=== PATIENT | male | born 1970 | race Caucasian/White ===

== ENCOUNTER → 2018-03-19 | Outpatient (CLI) | payer BC ==
--- NOTE | 2018-03-19 17:22 | RAD ---
History: Pain in right thumb and wrist. Comparison: None. Findings: PA, lateral, and oblique views of the right wrist. No acute fracture or dislocation is identified. No significant degeneration is seen. No focal soft tissue swelling is identified. PA view of the right hand. PA, lateral, and oblique views of the 1st digit of the right hand (thumb). No acute fracture or dislocation is identified involving the thumb. Mild 1st MCP degeneration is seen. Impression: 1. No acute osseous abnormality identified. 2. Mild 1st MCP degeneration. Electronically signed by: Marco A Gonzalez MD (03/19/2018 5:19 PM) [facility]
== END | disposition home or self-care (01) ==
LOC: PMG 09:20
PROVIDERS: ATTEND Physician Assistant
DX: M18.9 Osteoarthritis of first carpometacarpal joint, unspecified (principal)
CPT/HCPCS: 73110; 73140

== ENCOUNTER → 2020-10-23 | Outpatient (CLI) | payer BC ==
[2020-10-23 10:07] LABS: DIRECT BILIRUBIN 0.1 mg/dL (0.0-0.2); TOTAL BILIRUBIN 0.6 mg/dL (0.2-1.0); TOTAL PROTEIN 7.8 g/dL (6.4-8.2)
[2020-10-24 05:39] LABS: HEMOGLOBIN A1C 6.4 % (4.8-5.6)
== END ==
LOC: LAB 09:11
PROVIDERS: ATTEND Internal Medicine Gastroenterology
DX: E88.81 Metabolic syndrome and other insulin resistance (principal); R79.89 Other specified abnormal findings of blood chemistry
CPT/HCPCS: 36415; 80076; 82728; 83036; 86803; 87340

== ENCOUNTER → 2020-11-10 | Outpatient (CLI) | payer BC ==
--- NOTE | 2020-11-10 08:34 | RAD ---
EXAMINATION: US ABDOMEN LIMITED INDICATION: 50 years, Male, elevated liver function test. COMPARISON: None TECHNIQUE: Grayscale, color Doppler and limited spectral Doppler images of the right upper quadrant w ere obtained. FINDINGS: LIVER: SIZE (LENGTH): 15.6 cm. ECHOGENICITY: Increased PARENCHYMA: Mild heterogeneous echotexture. No discrete focal lesion. INTRAHEPATIC BILE DUCTS: Nondilated. PORTAL VEIN: Patent with normal hepatopedal flow. GALLBLADDER: GALLBLADDER WALL THICKNESS: 0.1 cm MORPHOLOGY: Normal morphology. No wall hyperemia or pericholecystic free fluid. LUMEN: Normal. COMMON BILE DUCT DIAMETER: 0.5 cm RIGHT KIDNEY: MEASURES: 11.1 cm in length. MORPHOLOGY/PARENCHYMA: Normal corticomedullary differentiation with no shadowing calculus or discrete masses. COLLECTING SYSTEM: No hydronephrosis. PANCREAS: Obscured by overlying bowel gas. OTHER: RETROPERITONEUM, INFERIOR VENA CAVA: Obscured by overlying bowel gas. AORTA: Obscured by overlying bowel gas. FLUID:No free fluid. IMPRESSION: Moderate diffuse hepatic steatosis. Electronically signed by: Song Barajas MD (11/10/2020 8:31 AM) [id number]
== END ==
LOC: US 07:48
PROVIDERS: ATTEND Internal Medicine Gastroenterology
DX: K76.0 Fatty (change of) liver, not elsewhere classified (principal); R94.5 Abnormal results of liver function studies; R16.0 Hepatomegaly, not elsewhere classified
CPT/HCPCS: 76705